=== PATIENT | male | born 1985 | race Caucasian/White ===

== ENCOUNTER 2017-04-27 16:26 | Emergency (ER) | payer SELFPAY ==
[~2017-04-27] VITALS: Ht 172.7 cm; Wt 69.0 kg
[2017-04-27 16:30] VITALS: BP 128/72; PULSE 74; RESP 16; TEMP 98; O2SAT 99
[2017-04-27] MEDS ORDERED: LIDOCAINE HCL 1% PF 30 ML VIAL INFIL ONE (17:00)
[2017-04-27] MEDS ORDERED: TETANUS/DIPHTHERIA TOXOID ADULT 0.5 ML VIAL IM ONE (17:00)
--- NOTE | 2017-04-27 17:03 | PD ---
HPI Chief Complaint: Laceration/Skin Injury Time Seen by Provider: 16:45 Travel History International Travel<30 days: No Contact w/Intl Traveler<30days: No Traveled to known affect area: No History of Present Illness HPI 31-year-old male presents to the emergency room for evaluation of a laceration to his right fifth finger on the palmar side that occurred just prior to arrival. Patient cut himself while opening a can of chili. He reports moderate pain worse with range of motion. He denies paresthesias or loss of range of motion. Unknown last tetanus. [facility] Social History Alcohol Use: Yes Tobacco Use: No Substance Use: No Allergies-Medications (Allergen,Severity, Reaction): Coded Allergies: No Known Allergies (Unverified , 04/27/17) Reported Meds & Prescriptions Reported Meds & Active Scripts Active No Active Prescriptions or Reported Medications Review of Systems Except as stated in HPI: all other systems reviewed are Neg Physical Exam Narrative GENERAL: Well-nourished, well-developed male in no acute distress. Afebrile. Ambulatory. SKIN: Focused skin assessment warm/dry. There is a 1.5 cm deep laceration over the right fifth MCP joint on the palmar side. HEAD: Normocephalic. EYES: No scleral icterus. No injection or drainage. NECK: Supple, trachea midline. No JVD or lymphadenopathy. CARDIOVASCULAR: Regular rate and rhythm without murmurs, gallops, or rubs. RESPIRATORY: Breath sounds equal bilaterally. No accessory muscle use. EXTREMITY: No edema. Full range of motion in all joints. Lumbrical and interossei function intact. Normal opposition of thumb. Distal extremity neurovascularly intact with intact two point discrimination. Data Data Last Documented VS Vital Signs Date Time Temp Pulse Resp B/P Pulse Ox O2 Delivery O2 Flow Rate FiO2 04/27/17 16:30 98.0 74 16 128/72 99 Orders Tetanus/Diphtheria Tox Adult (Tetanus/Di (04/27/17 17:00) Lidocaine Pf 1% Inj (Xylocaine-Mpf 1% In (04/27/17 17:00) MDM Medical Decision Making Medical Screen Exam Complete: Yes Emergency Medical Condition: Yes Medical Record Reviewed: Yes Differential Diagnosis Laceration, abrasion, tendon injury Narrative Course 31-year-old male presents to the emergency room for evaluation of a laceration to his right fifth finger on the palmar side that occurred just prior to arrival. There is a 1.5 cm deep laceration at the MCP joint of the right palmar fifth finger. No neurovascular injury. Full range of motion of the hand. Tetanus updated. Wound was thoroughly irrigated and then repaired, see procedure note for details. Patient discharged with wound care instructions and told to follow-up with a primary care physician or return for worsening symptoms. He understands and agrees to plan. Procedures Procedure Narrative LACERATION LOCATION: Right fifth MCP joint on the palmar side LENGTH: 1.5 cm NUMBER OF STITCHES/ANAID: 4 simple interrupted REPAIR: The area of the laceration was prepped with Betadine and sterilely draped. The laceration was infiltrated with lidocaine. The wound was copiously irrigated and explored without evidence of foreign body, tendon injury or neurovascular injury. The wound was closed using 5-0 Prolene. This was a single layer repair. A sterile dressing was applied. The patient was advised to keep the dressing clean and dry. Patient tolerated the procedure well. Diagnosis Primary Impression: Laceration of right little finger w/o foreign body w/o damage to nail Referrals: Primary Care Physician Patient Instructions: Finger Laceration (ED), General Instructions Additional Instructions: Rest and drink plenty of fluids. Keep wound clean and dry. Apply triple antibiotic ointment daily. Sutures out in 10 days. Take ibuprofen with food as directed, as needed for pain. Apply ice to the affected area for 20 minutes at a time, as needed for pain and swelling. Follow-up with a primary care physician. Return to the emergency room for worsening symptoms. Scripts No Active Prescriptions or Reported Meds Disposition: 01 DISCHARGE HOME Condition: Stable Jody Lima Apr 27, 2017 17:03
== END 2017-04-27 17:42 | disposition home or self-care (01) ==
LOC: PHEFT 16:26
DX: S61.216A Laceration without foreign body of right little finger without damage to nail, initial encounter (principal); W26.8XXA Contact with other sharp object(s), not elsewhere classified, initial encounter; Y93.G1 Activity, food preparation and clean up; Z23 Encounter for immunization
CPT/HCPCS: 12001; 90471; 90714